=== PATIENT | female | born 1985 | race African-American/Black ===

== ENCOUNTER 2020-12-02 22:39 | Emergency (ER) | payer OTHER ==
[2020-12-03] MEDS ORDERED: ZOFRAN ODT 4 MG4 MG SL (02:36)
[2020-12-03] MEDS ORDERED: PENICILLIN V P500 MG PO (02:36)
== END 2020-12-03 02:42 | disposition home or self-care (01) ==
LOC: ER1 22:39
DX: J06.9 Acute upper respiratory infection, unspecified (principal); K08.89 Other specified disorders of teeth and supporting structures; Z20.822 Contact with and (suspected) exposure to COVID-19
CPT/HCPCS: 99283; U0003

== ENCOUNTER 2021-10-06 16:02 | Emergency (ER) | payer OTHER ==
[~2021-10-06 16:02] MED LIST: PENICILLIN V P500 MG PO; ZOFRAN ODT 4 MG4 MG SL
[2021-10-06 16:33] LABS: HEMOGLOBIN 10.3 gm/dl (12.3-15.3); RED BLOOD COUNT 4.83 M/UL (4.00-5.10); WHITE BLOOD COUNT 8.2 K/UL (4.5-11.0)
[2021-10-06 16:59] LABS: BUN/CREATININE RATIO 11 (0-10)
[2021-10-06] MEDS ORDERED: ZOFRAN ODT 4 MG4 MG PO (18:20)
[2021-10-06] MEDS ORDERED: ANTIVERT25 M1 PO (18:20)
== END 2021-10-06 18:34 | disposition home or self-care (01) ==
LOC: ER1 16:02
PROVIDERS: Family Medicine
DX: H81.10 Benign paroxysmal vertigo, unspecified ear (principal); E03.9 Hypothyroidism, unspecified; D64.9 Anemia, unspecified; R11.0 Nausea
CPT/HCPCS: 0240U; 70450; 80053; 82550; 82553; 84439; 84443; 84484; 84703; 85025; 93005; 96374; 99284; J2405